=== PATIENT | male | born 1960 | race Caucasian/White ===

== ENCOUNTER 2019-09-05 20:56 | Inpatient (IN) ==
--- NOTE | 2019-09-05 22:19 | PROVIDER DOCUMENTATION ---
This chart was entered by Racheal Telles Scribe, acting as scribe for Caroline Ornelas MD. HPI-Abdominal Pain/GI Problem - General Chief Complaint: Edema Stated Complaint: SWELLING IN ABDOMEN Time Seen by Provider: 09/05/19 20:59 Source: patient Allergies/Adverse Reactions: Patient Allergies Allergy/AdvReac Type Severity Reaction Status Date / Time Penicillins Allergy SWELLING Verified 09/05/19 22:00 Sulfa (Sulfonamide Allergy mouth Verified 09/05/19 22:00 Antibiotics) breaks out Home Medications: Home Medication List Medication Instructions Recorded Confirmed Last Taken Type Omeprazole [Prilosec] 20 mg PO DAILY 12/31/17 09/05/19 Unknown History - History of Present Illness-ABD Nature of Presenting Problems: pt is a 59 yr old male presenting with 6 month complaint of inability to eat, nausea, abdominal pain, incontinence of bowel and bladder. pt reports he has urge to urine but urine is coming from his abdominal wal not his urethra. pt reports all began shortly after having his gall bladder removed. pt reports 2 swollen areas to mid abdomen that became smaller today after passing blood with his urine. pt denies fever, admits fatigue Abdominal Pain Onset Location: reports: generalized abdomen Quality of Pain: reports: aching, cramping Onset/Duration: reports: gradual (6+months) Timing: reports: changing over time, getting worse Activities at Onset: reports: light activity Exposure to sick contacts?: No Modifying Factors: improves with: nothing Associated Symptoms: reports: diarrhea, fatigue, genitourinary problems, nausea. denies: back/neck pain, chest pain, constipation, EENT symptoms, fever/chills, loss of appetite, vomiting Last BM: this evening Dark Stools Present?: reports: none noticed Rectal Pain: reports: none Emesis Description: reports: none Bruising or Bleeding Gums?: No Similar Symptoms Previously?: Yes Recently seen or treated by another doctor?: No Review of Systems - Adult - REVIEW OF SYSTEMS - ADULT Constitutional: reports: vinod. denies: chills, fever Eyes: reports: no symptoms reported Ears, Nose, Mouth & Throat: reports: no symptoms reported Cardiovascular: denies: chest pain, palpitations, syncope Respiratory: reports: dyspnea on exertion, shortness of breath. denies: cough Gastrointestinal: reports: abdominal pain, diarrhea, nausea, poor appetite. denies: vomiting Genitourinary: reports: hematuria, incontinence Musculoskeletal: reports: no symptoms reported Integumentary: reports: no symptoms reported Neurological: denies: dizziness/vertigo, headache/migraines Psychiatric: reports: no symptoms reported Endocrine: reports: no symptoms reported Hematologic/Lymphatic: reports: no symptoms reported Allergic/Immunologic: reports: no symptoms reported All Other Systems: Reviewed and Negative Past History - Adult - PAST MEDICAL HISTORY-ADULT Review of Records: reports: Old Records Reviewed, Nursing Assessment Review, Medications Reviewed, Social history reviewed & non-contributory. Major Childhood Illnesses: reports: denies history Cardiovascular: reports: denies history Respiratory: reports: denies history Gastrointestinal: reports: GERD Obstetrical/Gynecological: reports: denies history Genitourinary: reports: denies history Musculoskeletal: reports: denies history Neurological: reports: denies history Endocrine/Immune: reports: other (Hemochromatosis) Other Conditions: reports: denies history - PRIOR SURGERIES/PROCEDURES Surgical/Procedure History: reports: cholecystectomy - IMMUNIZATION STATUS Childhood Immunizations: See Nurse Assessment Flu Vaccine: See Nurse Assessment - FAMILY HISTORY Family History: reviewed, not pertinent - SOCIAL HISTORY Smoking: cigarettes Provider spent 3-5 mins advising pt. on dangers of tobacco.: Discussed manners to quit use, and f/u contacts for add'l counseling. Substance Use: denies Living Situation: family Physical Exam-General - PHYSICAL EXAM-ADULT Initial Vital Signs Reviewed: Yes - CONSTITUTIONAL General Appearance: alert, moderate distress, thin, other (chronically ill appearing, disheveled) - EYES Eyes: PERRL/EOMI, scleral icterus (mild) - HEAD, EARS, NOSE, MOUTH & THROAT HENMT: normocephalic/atraumatic, normal ENT inspection - NECK Neck: non-tender, full range of motion, supple, normal inspection - RESPIRATORY Respiratory: chest non-tender, lungs clear, normal breath sounds, no respiratory distress, no accessory muscle use - CARDIOVASCULAR Cardiovascular: normal peripheral pulses, regular rate, rhythm, no edema - GASTROINTESTINAL (ABDOMEN) Abdominal Exam: normal bowel sounds, distended, tenderness (diffuse tenderness), other (possible umbilical hernia with irritation to base of skin of flap) - LYMPHATIC Lymphatic: no adenopathy - MUSCULOSKELETAL Back Exam: normal inspection Extremity: normal range of motion, non-tender, normal inspection - SKIN Integumentary: normal turgor, warm/dry, jaundice (mild) - NEUROLOGIC Neurologic: grossly normal, no motor/sensory deficits - PSYCHIATRIC Psych/Mental Status: normal mood/affect, anxious, disheveled, other (odd affect) Progress - PLAN OF CARE/RESULTS Result Diagrams: 09/05/19 23:34 09/05/19 23:34 - CT/MRI 1 CT Study: Abdomen (cirrhosis, moderate ascites, mild wall thicening involvin small and large bowel. Could be due to liver disase and third spacing vs enterocolitis, infectious of inflammatory) - CONSULTS/PCP/HOSPITALIST Notification #1 *Consult/PCP/Hospitalist*: Dr Taylor Consult Disposition: Admit (accepted for admission) Departure - Departure Date of Disposition Decision: 09/06/19 Time of Disposition Decision: 04:57 DIAGNOSIS: Ascites, Abdominal pain, Cirrhosis Disposition: ADMITTED INPATIENT 09 Certified Medical Emergency: Emergent Condition: Stable - Critical Care Note This patient required my direct & personal management of CC.: No Attestation - Physician/ JAMMIE Attestation Patient care was provided by Advanced Practice Provider:: No The physician spent face to face time with patient:: Yes Advanced Practice Provider documentation review:: Supervising physician onsite and consulted in the evaluation and care of this patient. The physician did have a face to face encounter with the patient. This chart was documented by the indicated scribe, (Racheal Telles Scribe) and accurately reflects the services I performed and decisions made by me, Caroline Ornelas MD, as attested by the provider's signature.
[2019-09-05 23:44] LABS: BASO# 0.04 X1000 (0.0-0.2); BASO% 0.5 % (0.0-0.8); EOS# 0.02 X1000 (0.0-0.7); EOS% 0.3 % (0.0-10.0); HEMATOCRIT 34.2 % (42.0-52.0); HEMOGLOBIN 11.7 g/dL (14.0-18.0); LYMPH# 1.57 X1000 (1.2-3.4); LYMPH% 21.5 % (20.5-51.1); MCH 33.6 PG (27-31); MCHC 34.2 g/dL (33-37); MCV 98.3 FL (81-99); MONO# 0.83 X1000 (0.11-0.59); MONO% 11.4 % (1.7-9.3); MPV 10.7 FL (7.4-10.4); NEUT# 4.84 X1000 (1.4-6.5); NEUT% 66.3 % (42.2-75.2); PLT 132 X1000 (130-400); RBC 3.48 XMIL (4.7-6.1); RDW 12.8 % (11.5-14.5)
[2019-09-06 00:12] LABS: AGAP 9; ALB/GLOB RATIO 0.6; ALBUMIN 2.2 g/dL (3.5-5.0); ALKALINE PHOSPHATASE 86 U/L (32-122); BUN 10 mg/dL (8-22); CALCIUM 8.6 mg/dL (8.8-10.2); CHLORIDE 93 mmol/L (98-107); COSMO 250; CREATININE 0.8 mg/dL (0.7-1.2); ESTIMATED GFR > 60; GLUCOSE 121 mg/dL (70-104); GOT 39 U/L (10-34); GPT 12 U/L (10-44); LIPASE 36 U/L (13-60); POTASSIUM 4.4 mmol/L (3.5-5.1); SODIUM 124 mmol/L (136-145); TCO2 22 mmol/L (25-35); TOTAL BILIRUBIN 2.62 mg/dL (0.20-1.00); TOTAL PROTEIN 5.9 g/dL (6.3-8.3)
[2019-09-06 00:13] LABS: URINE SOURCE CATH
[2019-09-06 00:25] LABS: BILIRUBIN URINE SMALL (NEGATIVE); BLOOD URINE NEGATIVE (NEGATIVE); COLOR ORANGE; GLUCOSE URINE NEGATIVE (NEGATIVE); KETONE URINE NEGATIVE (NEGATIVE); LEUKOCYTES URINE SMALL (NEGATIVE); NITRITE URINE NEGATIVE (NEGATIVE); PROTEIN URINE TRACE mg/dL (NEGATIVE); SP GRAVITY URINE 1.023; TURBIDITY URINE HAZY (CLEAR); UR EPITHELIAL CELLS <10 /HPF (<10); URINE BACTERIA NEGATIVE /HPF; URINE RBC <10 /HPF (<10); URINE WBC <10 /HPF (<10); UROBILINOGEN URINE 4 mg/dL (NORMAL)
[2019-09-06] MEDS ORDERED: NS 1,000 ML IV ONE (00:26)
[2019-09-06 00:34] LABS: UR AMPHETAMINES QUAL NONE DETECTED (NONE DETECT); UR BARBITUATES QUAL NONE DETECTED (NONE DETECT); UR BENZODIAZEPIN QUAL NONE DETECTED (NONE DETECT); UR CANNABINOIDS QUAL NONE DETECTED (NONE DETECT); UR COCAINE QUAL NONE DETECTED (NONE DETECT); UR METHADONE QUAL NONE DETECTED (NONE DETECT); UR OPIATES QUAL NONE DETECTED (NONE DETECT); UR OXYCODONE QUAL NONE DETECTED (NONE DETECT); UR PCP QUAL NONE DETECTED (NONE DETECT)
[2019-09-06] MEDS ORDERED: LEVAQUIN 750 MG/D5W 750 MG/150 ML IVPB IV ONE (02:35)
[2019-09-06] MEDS ORDERED: THIAMINE 100 MG in NS 50 ML IV ONE (02:48)
[2019-09-06 03:12] LABS: INR 1.4; PROTIME 17.4 Seconds (11.0-16.0)
[2019-09-06 03:18] LABS: PHOSPHORUS 2.1 mg/dL (2.7-4.5)
[2019-09-06] MEDS ORDERED: ZOFRAN IV PRN (03:38)
[2019-09-06] MEDS: PROTONIX IV SCH ×2 (04:03→16:00)
--- NOTE | 2019-09-06 04:49 | HISTORY AND PHYSICAL ---
PRIMARY CARE PROVIDER: Unknown, he states he has a PA but would not give me the name. CHIEF COMPLAINT: Abdominal pain, leaking from the belly button. HISTORY OF PRESENT ILLNESS: Mr. Hooper is a 59-year-old gentleman who is a very poor historian with an inconsistent story, who comes to the ED complaining about abdominal tenderness that has been ongoing from a few weeks to 1 month. He states he has not been able to get out of the bed since . He stays awake maybe 2 to 3 hours per day. He takes in maybe 500 calories a day. He has dysphagia with solids and liquids. He also reports leaking out of his old abdominal incision that he reports is from a cholecystectomy he reports was done here. However, I do not have any information that he had a cholecystectomy performed here. He also reports that he came to the ED here on , I do not have an ER report on that either. He does state that he drinks about six 6-packs of beers per week. However, he has had about a beer and a half in the last 3 days, unknown amount of time of his bilateral lower extremity pitting edema. Only other history, he states he takes Prilosec for his GERD every day. Sister called and stated that he had a leakage around his navel area that smelled like urine as well as some abdominal swelling. The abdominal swelling began back in April and the umbilicus herniated back in May. The patient does know his name, his date of , he does know that we are in the year 1999. however, he was confused on which year it was, or what is really going on. He does not know what day or time of day it is, as he feels he just sleeps his day away because he is not able to eat or drink. PAST MEDICAL HISTORY: GERD, alcohol abuse, cirrhosis, which the patient denies any history of. PAST SURGICAL HISTORY: States cholecystectomy, bilateral hand surgery, left foot surgery with metals. FAMILY HISTORY: Unknown. ALLERGIES: Penicillin and sulfa. REVIEW OF SYSTEMS: Really hard to obtain secondary to the patient's inconsistencies and really just not answering the questions appropriately. PHYSICAL EXAMINATION: VITAL SIGNS: Temperature is 98.3 degrees, heart rate 94, respirations 22, blood pressure 125/83, O2 is 99% on room air. GENERAL: Mr. Hooper is a 59-year-old gentleman who is lying on the stretcher, in no acute distress. HEENT: Atraumatic, normocephalic. PERRL. NECK: Supple. Trachea midline. CARDIOVASCULAR: S1, S2 appreciated. No murmurs, gallops, rubs noted. RESPIRATORY: Lung sounds clear bilaterally. GASTROINTESTINAL: Somewhat distended, tender. Positive bowel sounds. LOWER EXTREMITIES: 2 to 3+ pitting edema. NEUROLOGIC: Patient is awake, alert. Did not appreciate any focal deficits. DIAGNOSTIC DATA: A CT of the abdomen and pelvis shows cirrhosis, moderate ascites, mild wall thickening involving segments of the small and large bowel. Considerations include 3rd spacing of fluid related to chronic liver disease, a small fat containing periumbilical hernia, small bilateral pleural effusions, anasarca. LABORATORY DATA: White count 7, hemoglobin and hematocrit 11 and 34, platelet count is 132,000. Chemistry: Sodium 124, potassium 4.4, BUN 10, creatinine 0.8. Blood glucose is 121, calcium was 8.6, total bilirubin is 2.62, AST 39, ALT 12, alkaline phosphatase is 86. Ammonia level 14. Total protein is 59, albumin is 2.2, lipase 36. ASSESSMENT AND PLAN: 1. Cirrhosis of the liver, probably alcoholic with moderate ascites and anasarca. I put in for an ultrasound, abdominal paracentesis. I do not know if that can be done today, possibly on Sunday. Consult gastroenterology. Check a PT, INR, PTT. Start him on Aldactone. 2. Alcohol abuse. Patient does six 6-packs of beers per week, per his report. He has had a beer and a half over the last 3 days. We will watch him closely for alcohol withdrawal and delirium tremens, put in for some p.r.n. Ativan for alcohol withdrawal, give him a dose of thiamine. 3. Dysphagia. We will set him up for a GI series. Check a B12, folate. 4. Periumbilical hernia that is small. The patient feels like it is oozing a foul smelling odor that smells like urine to him. We will do some cultures. He has been started on Flagyl and Levaquin. 5. Gastroesophageal reflux disease. We will continue with Protonix b.i.d. given his lower platelet count. 6. Hemochromatosis. Check iron studies. 7. Hyponatremia. The patient was given 1 L fluid bolus. We will recheck in the a.m. 8. Encephalopathy. We will continue with neuro checks. Ammonia level was normal. 9. Further recommendation to follow physician evaluation, laboratory and diagnostic data. Dictated by ZHANG Garcia for Rodrick Jeffers MD cc: Rodrick Jeffers MD Independent exam and assessment done by me at bedside with RN SHIFT MGR; started on abx to cover on broad coverage for SBP and possible secondary peritonitis. Will also need diagnostic paracentesis to determine culture reports. MTDD
--- NOTE | 2019-09-06 05:50 | Diag Imaging Result Doc PS360 ---
EXAM: CT ABD/PELVIS W/IV CONT ONLY HISTORY: possible bladder urinary fistula TECHNIQUE: CT abdomen and pelvis with intravenous contrast, but without oral contrast. COMPARISON: 12/31/2017 FINDINGS: There are tiny pleural effusions measuring less than 1.5 cm. The spleen measures 13.7 cm in AP diameter. The gallbladder has been removed. There is fatty infiltration of the liver. A small amount of fluid is about the liver and spleen. Minimal abdominal ascites. Normal pancreas, adrenal glands, and kidneys. No hydronephrosis. No aortic aneurysm. Prominent atherosclerosis. No bowel obstruction. Mild pleural thickening to several small bowel loops in proximal colon. No abscess. Small fat filled umbilical hernia. The urinary bladder is only mildly distended. The prostate is not enlarged. Tiny scattered mesenteric nodes. IMPRESSION: 1.Cirrhosis with minimal ascites 2.Cholecystectomy 3.Tiny pleural effusions 4.Prominent atherosclerosis 5.Possible enteritis 6.A preliminary report was given at 1:22 AM This exam was performed using automated exposure control, adjustment of mA or kV according to patient size, and/or use of iterative reconstruction technique. Electronically signed by Ilya Quarles 09/06/2019 5:48 AM
[2019-09-06 07:50] LABS: INR 1.66; PROTIME 19.9 Seconds (11.0-16.0)
[2019-09-06 07:51] LABS: PTT 40.8 Seconds (22.3-41.8)
[2019-09-06] MEDS: FLAGYL 500 MG/NS 500 MG/100 ML IVPB IV SCH ×3 (08:13→19:44)
[2019-09-06] MEDS: ALDACTONE PO SCH ×3 (08:13→21:58)
[2019-09-06] MEDS: THIAMINE 500 MG in NS 50 ML IV SCH ×2 (10:50→19:43)
--- NOTE | 2019-09-06 11:39 | PROGRESS NOTE ---
DATE: 09/06/2019 INTERVAL HISTORY: No acute events overnight. His vitals were unremarkable. He had profound metabolic derangement and confusion when he presented. He is currently sleepy and he states he has not had any breakfast this morning. SUBJECTIVE: He denies any chest pain, shortness of breath, or cough. He denies any vomiting since he has been in the hospital, though he is feeling nauseous. He states he did have leaking through his umbilicus when he was at home. REVIEW OF SYSTEMS: Negative for abdominal pain. Negative for fever. Negative for chills. Positive for difficulty swallowing. However, I canceled upper GI barium swallow since only urgent upper GI or small bowel series have been done over the weekends. VITALS: Temperature 98 degrees, pulse 85, respiratory 18, blood pressure 115/72. He is saturating 100% on room air. PHYSICAL EXAMINATION: Not in acute distress. He has severe protein energy malnutrition with temporal wasting. He has spider angiomata affecting anterior chest wall. No pallor, cyanosis, clubbing, or icterus.Lungs: Air entry bilaterally equal. No wheeze, rhonchi, crackles. Cardiovascular: S1, S2 normal. No murmur or gallop. Abdomen: Soft, distended. Mild generalized tenderness without any focality. He has hepatomegaly with lower edge of liver palpable 2 cm below midclavicular line. I could not appreciate splenomegaly. Is tympanic to percussion. However, in right lateral position I could appreciate dull note on the right lower quadrant. Active bowel sounds. Extremities: He has bilateral lower extremity edema with erythematous patches extending up to thigh level. He is alert. He is oriented to himself. He is also oriented to time though he initially thought this was [facility]. He is a poor historian. LABS: No CBC today. INR shows 1.6. No new BMP. Microbiology known positive data so far. Abdomen pelvis CT on presentation had cirrhosis with minimal ascites, cholecystectomy, pleural effusions, possible enteritis. ASSESSMENT AND PLAN: 1. New diagnosis of cirrhosis, likely because of chronic ongoing alcohol abuse with ascites, bilateral pleural effusion and lower extremity edema. The patient was strongly counseled about stopping alcohol use. He also mentions that he had a liver biopsy in the past and medical records from [facility] have been requested. 2. Hypoalbuminemia, anasarca with bilateral pleural effusions and lower extremity edema because of liver cirrhosis. Start patient on furosemide and spironolactone with a goal of reaching furosemide 40 mg and spironolactone 100 mg daily. I will closely monitor his electrolytes and blood pressure. 3. Possible enteritis and mild inflammation around the umbilical hernia. There isn't any rebound or rigidity. There is cellulitis, oozing over umbilical hernia and Cultures have been taken. I advised the nursing team to apply colostomy bag. Continue IV antibiotics for a short course and follow up final culture results. He may need surgery evaluation if he has a large amount of ascitic fluid draining. 4. Alcohol abuse and alcohol use disorder. I will start him on high-dose intravenous thiamine. Currently on neurological examination, he is able to raise both upper and lower extremities above ground level. He does not have any ophthalmoplegia with pupils equal reacting to light and extraocular movements intact both sides of midline. I will start him on high-dose intravenous thiamine and multivitamin. 5. Hyponatremia, hypochloremia, hypocalcemia, hypophosphatemia because of poor oral intake as well as hypotonic hyponatremia in the setting of anasarca. I will follow up with urine electrolytes and start him on diuretics. I will also follow up with stat cortisol and TSH level. DISPOSITION: Continue to monitor patient inside the hospital. Plan of care discussed with him. His questions have been answered. Appreciate GI recommendations. cc: Basim Norwood MD [facility] SYSTEMLorne
[2019-09-06] MEDS: LASIX PO SCH (13:55)
[2019-09-06 22:43] LABS: PROTEIN CREAT RATIO 0.1; UR CREAT RANDOM 192.3 mg/dL (14-26); UR PROT RANDOM 23.8 mg/dL
[2019-09-06 22:46] LABS: UR CREAT RANDOM 181.6 mg/dL (14-26); UR SODIUM < 10 mmoll
[2019-09-07] MEDS ORDERED: VITAMIN K 10 MG in NS 50 ML IV ONE (00:04)
[2019-09-07] MEDS ORDERED: NS 500 ML ONE (00:36)
[2019-09-07] MEDS: FLAGYL 500 MG/NS 500 MG/100 ML IVPB IV SCH ×4 (02:17→21:12)
[2019-09-07] MEDS: LEVAQUIN 750 MG/D5W 750 MG/150 ML IVPB IV SCH (02:17)
[2019-09-07] MEDS: THIAMINE 500 MG in NS 50 ML IV SCH ×3 (03:24→20:14)
[2019-09-07] MEDS: PROTONIX IV SCH ×2 (03:24→14:43)
[2019-09-07 07:37] LABS: BASO# 0.02 X1000 (0.0-0.2); BASO% 0.4 % (0.0-0.8); EOS# 0.06 X1000 (0.0-0.7); EOS% 1.2 % (0.0-10.0); HEMATOCRIT 28.8 % (42.0-52.0); HEMOGLOBIN 9.9 g/dL (14.0-18.0); LYMPH# 1.13 X1000 (1.2-3.4); LYMPH% 23.2 % (20.5-51.1); MCHC 34.4 g/dL (33-37); MONO# 0.58 X1000 (0.11-0.59); MONO% 11.9 % (1.7-9.3); MPV 10.5 FL (7.4-10.4); NEUT# 3.08 X1000 (1.4-6.5); NEUT% 63.3 % (42.2-75.2); PLT 120 X1000 (130-400); RBC 2.91 XMIL (4.7-6.1); RDW 12.7 % (11.5-14.5); WBC 4.87 X1000 (4.8-10.8)
[2019-09-07 07:51] LABS: AGAP 11; ALB/GLOB RATIO 0.7; ALBUMIN 1.9 g/dL (3.5-5.0); ALKALINE PHOSPHATASE 68 U/L (32-122); BUN 11 mg/dL (8-22); CALCIUM 7.7 mg/dL (8.8-10.2); CHLORIDE 97 mmol/L (98-107); COSMO 256; ESTIMATED GFR > 60; GLUCOSE 97 mg/dL (70-104); GOT 39 U/L (10-34); GPT 11 U/L (10-44); MAGNESIUM 1.6 mg/dL (1.5-2.7); SODIUM 128 mmol/L (136-145); TCO2 20 mmol/L (25-35); TOTAL BILIRUBIN 1.85 mg/dL (0.20-1.00); TOTAL PROTEIN 4.8 g/dL (6.3-8.3)
[2019-09-07] MEDS: ALDACTONE PO SCH ×2 (09:29→20:14)
[2019-09-07] MEDS: LASIX PO SCH (09:29)
[2019-09-07] MEDS: THERA M PLUS PO SCH (09:29)
--- NOTE | 2019-09-07 10:03 | GASTROENTEROLOGY CONSULTATION ---
DATE: 09/06/2019 REASON FOR CONSULTATION: Cirrhosis with ascites. HISTORY OF PRESENT ILLNESS: Mr. Akin Hooper is a 59-year-old gentleman with history of acid reflux, alcohol abuse, who presented with 1 month of progressive abdominal tenderness. The patient reports that he underwent a cholecystectomy in the past and since then, he says that he has been having some abdominal swelling and lower extremity edema. He drinks about six 6-packs of beer per week, which he says he likes it. He takes a Prilosec for GERD every day. The patient notes that he has noticed some new umbilical hernia with some leaking from that site. Apparently, he has not been able to get out of bed since . He reports being recently hospitalized at [facility], where he, apparently, had a liver biopsy and a paracentesis. However, he was never started on any diuretic, per his report. REVIEW OF SYSTEMS: The patient is not very cooperative and unable to give a consistent history. PAST MEDICAL HISTORY: As per HPI. PAST SURGICAL HISTORY: Cholecystectomy, bilateral hand surgery, left foot surgery. FAMILY HISTORY: Unknown. SOCIAL HISTORY: He drinks beer regularly, as mentioned. He was not able to provide any other history. ALLERGIES: Penicillin, sulfa. MEDICATIONS: Omeprazole. PHYSICAL EXAMINATION: Vital signs: Temperature is 98.1 degrees, heart rate 96, respiratory rate of 17, blood pressure of 118/57, O2 saturation 91% on room air. General: Patient is awake, alert, oriented x3. HEENT: Sclerae anicteric. Moist mucous membranes. Extraocular movements intact. Neck: Supple. No JVD or lymphadenopathy. Cardiac: Regular rate and rhythm. No murmurs, rubs or gallops. Lungs: Clear to auscultation bilaterally. Abdomen: Protrudent, distended. Notable umbilical hernia, not incarcerated. Some mild ascites, nontender. Extremities: With 2+ pitting edema with some erythema in the left lower extremity at his foot, nontender. Neurologic: Nonfocal. No asterixis. LABORATORY DATA: White count is 7.3. Yesterday, hemoglobin 11.7, platelets of 132,000. INR of 1.66. Sodium 124, potassium 4.4, chloride 93, bicarb 23, BUN of 10, creatinine 0.8. Glucose of 121. LFTs: Total bilirubin 2.26, AST 38.9, ALT 12, alkaline phosphatase 86. INR of 2.1, calcium 8.6, iron 33, ammonia 14, total protein 5.9, albumin 2.2, lipase 36. Vitamin B12 of 718, folate is 4.2. AM cortisol 14.7. UA shows trace protein, bilirubin, leukocytes, ketones. Negative alcohol. IMAGING: CT of the abdomen and pelvis shows cirrhosis with minimal ascites, cholecystectomy in the past, tiny pleural effusion. ASSESSMENT AND PLAN: Mr. Akin Hooper is a 59-year-old gentleman with past medical history of alcoholic cirrhosis with ascites who presents with worsening lower extremity edema, abdominal distention, found to have significant hyponatremia, folate deficiency, iron deficiency, protein calorie malnutrition, and coagulopathy thought to be nutritional. CT scan of the abdomen and pelvis does show some minimal ascites. He is currently on Lasix 20 mg daily, Flagyl, nafcillin, multivitamin, plus a PPI IV b.i.d., spironolactone 25 mg daily, and Diovan. His urine sodium was less than 10. Recommend fluid restriction, checking labs daily, BNP, INR, IV vitamin K. Patient does not appear to have enough fluid on his abdominal exam to tap. Ultrasound- guided paracentesis. Please get records from [facility]. Monitor for signs of alcohol withdrawal. - Decompensated ETOH cirrhosis with ascites - Altered mental status - Hyponatremia - Folate deficiency anemia - Iron deficiency anemia - Thrombocytopenia - Severe protein calorie malnutrition - Coagulopathy - Alcoholism Thank you for this consult. We will follow with you. Please call with any questions or concerns. [facility]
[2019-09-07] MEDS ORDERED: ALBUMIN 25% IV ONE (12:28)
--- NOTE | 2019-09-07 15:06 | PROGRESS NOTE ---
DATE: 09/07/2019 INTERVAL HISTORY: A colostomy bag was applied over his umbilicus since the umbilicus kept on oozing a large amount of ascitic fluid. No other acute overnight events. Mr. Hooper's vitals were largely unremarkable. His hemoglobin is 9.9. His sodium and chloride have been improving. He is getting intravenous albumin as he lost more than 1 L of ascitic fluid through colostomy bags. SUBJECTIVE: He denies chest pain, shortness of breath, cough. He denies nausea, vomiting. REVIEW OF SYSTEMS: Negative for burning in the micturition. Positive for decreased appetite. Positive for persistent distention of the abdomen. VITAL SIGNS: Temperature 97.9 degrees, pulse 80, respiratory rate 18, blood pressure 108/61. He is saturating 100% on room air. PHYSICAL EXAMINATION: General: Mr. Hooper is not in any acute distress. HEENT: Oral cavity is moist. He does have severe protein energy malnutrition with temporal wasting, spider angiomata affecting anterior chest wall. No pallor, cyanosis, clubbing, or icterus. Lungs: Air entry bilaterally equal. No wheeze, rhonchi, or crackles. Cardiovascular: S1, S2 normal. No murmur or gallop. Abdomen: Soft, distended. Mild generalized tenderness. He has a colostomy bag over his umbilicus. He has hepatomegaly with lower edge of the liver palpable 2 cm below midclavicular line. I could not appreciate any splenomegaly. Tympanic to percussion most abdomen except flanks where he has mild dullness, which is shifting dullness. Extremities: He has a bilateral lower extremity edema with erythematous macules extending up to thigh level. Input and output: Suggest -200 mL yesterday. LABS: Suggestive of hemoglobin of 9.9, WBC 4.8, platelet 120,000. His sodium has improved to 128, chloride 97. His kidney function is normal. His glucose is 97, total bilirubin of 1.8. His TSH was 2.4. Cortisol was 14.7. His urine sodium was less than 10. MICROBIOLOGY: Urine culture was growing gram-positive cocci. However, urinalysis on presentation had less than 10 WBCs and he did not have any symptoms. ASSESSMENT AND PLAN: 1. Cirrhosis, likely alcoholic with ascites, bilateral pleural effusion, and lower extremity edema. The patient was counseled about stopping alcohol use. Previous records from [facility] are pending, where he claims to have undergone liver biopsy, endoscopy, and paracentesis. GI team on board. Ultrasound-guided paracentesis has been requested to be done on September 07. 2. Hypoalbuminemia, anasarca with bilateral pleural effusions and lower extremity edema because of liver cirrhosis. Continue furosemide, spironolactone with a goal of furosemide of 40 and spironolactone 100 a day. I will give him intravenous albumin considering he lost more than 1 L of ascitic fluid through the umbilicus. 3. Possible enteritis and mild inflammation around the umbilical hernia. There is no rebound or rigidity. He only has mild generalized tenderness. There is possibly mild cellulitis around the umbilicus, around the hernia, though it is reducible. I will consult General Surgical team, as per my discussion with GI team, considering he continues to have a significant amount of oozing of ascitic fluid from his umbilical hernia. I will continue intravenous antibiotics. 4. Alcohol abuse and alcohol use disorder. The patient was counseled about cessation. He is not demonstrating any signs of alcohol withdrawal. Continue high-dose intravenous thiamine and multivitamin. He is more alert today then yesterday. 5. Hyponatremia, hypochloremia, hypocalcemia, and hypophosphatemia because of poor oral intake, as well as hypotonic hyponatremia in the setting of hypervolemia related to cirrhosis. Continue diuretic and follow up sodium and chloride levels. 6. Disposition. Continue to monitor patient inside the hospital as we await paracentesis tomorrow. I will also follow up with sodium and chloride level tomorrow. Plan of care discussed with him. If no further GI interventions planned after paracentesis, I would anticipate discharge in the next 48 hours based on his clinical course. The patient is in agreement with that plan. cc: MD PEGGY Cortez
--- NOTE | 2019-09-07 17:16 | GENERAL SURGERY CONSULTATION ---
DATE: 09/07/2019 REQUESTING PHYSICIAN: Dr. Norwood. REASON FOR CONSULTATION: Umbilical hernia with leaking ascites. HISTORY OF PRESENT ILLNESS: This is a 59-year-old male who has had abdominal distention and discomfort for what sounds like several months. He is a poor historian but his sister stated that he began swelling last April. They noticed an umbilical hernia back in May. He has been confused for some time and has been mostly in the bed for the last few months. Over the last few weeks, there have been several episodes of leaking fluid from his umbilical area in the hernia and then recently, over the last few days, a large amount of fluid has been leaking. He does report to drink beer regularly, he says a 6 pack per week. He has previously been evaluated in [facility] in what I think is 2018 when he had a cholecystectomy and what sounds like a liver biopsy and a paracentesis. He apparently was lost to followup and now was presenting with these new findings of a ruptured umbilical hernia and increased abdominal swelling and confusion. PAST MEDICAL HISTORY: Gastroesophageal reflux disease, alcohol abuse, he mentions hemochromatosis. PAST SURGICAL HISTORY: Laparoscopic cholecystectomy, hand surgery, left foot surgery. FAMILY HISTORY: Unknown. ALLERGIES: Penicillin and sulfa. HOME MEDICATIONS: Omeprazole. SOCIAL HISTORY: He does drink alcohol regularly. REVIEW OF SYSTEMS: Really difficult to obtain secondary to his poor history, inconsistency, and poor memory. PHYSICAL EXAMINATION: Temperature 97.9 degrees, pulse 80, respirations 18, blood pressure 108/61, O2 saturation 100%. General: Elderly, disheveled appearing, chronically malnourished male who looks older than stated age, in no acute distress. HEENT: Normocephalic, atraumatic. Extraocular muscles intact. His face does appear to be sunken in some due to chronic muscle wasting. Neck: Supple. No thyromegaly. Lymphatics: No cervical, supraclavicular, or periumbilical lymph nodes appreciated. CV: Regular rate and rhythm. Respiratory: Bilateral breath sounds. No work of breathing. GI: Protuberant, soft. No organomegaly or mass. He has a reducible, 2 cm umbilical hernia which is leaking steadily, clear ascites into an umbilical bag. I do not really note any erythema of the area. Extremities: Bilateral edema is noted. No cyanosis. Musculoskeletal: Moves all extremities equally. He appears to have chronic muscle wasting. LABORATORY DATA: White cell count 4.8, hemoglobin 9.9, hematocrit 28, platelet count 120,000. INR 1.66. Electrolytes reviewed. Notable for a sodium of 128, chloride 97, CO2 of 20, BUN 11, creatinine 1.0. Total bilirubin 2.6 on admission and 1.8 now, AST 39, ALT 11, alkaline phosphatase 68, lipase 36, albumin 2.2 two days ago and 1.9 today. Urinalysis negative. IMAGING: CT of the abdomen and pelvis was reviewed, showing cirrhosis with a small amount of ascites. Normal pancreas, adrenal glands, and kidneys. The gallbladder has been removed. There were tiny pleural effusions. ASSESSMENT AND PLAN: A 59-year-old male with a leaking umbilical hernia secondary to ascites and cirrhosis. We will seek to get the records from [facility]. In the meantime, I think he will require umbilical hernia repair in this setting. Future referral for liver transplantation, diet changes, diuretics per the hospitalist. cc: Pavel Cisneros MD
[2019-09-07] MEDS ORDERED: LOVENOX SUBQ SCH (18:00)
--- NOTE | 2019-09-07 23:06 | PROVIDER PROGRESS NOTE ---
Progress Note S: No acute overnight event. Patient reports improvement in abdominal distension. However, he has had significant drainage of ascites from umbilicus nearly 5L requiring adding ostomy drain. No bleeding or confusion. O: Last Vital Signs Temp 98.7 F 09/07/19 19:50 Pulse 89 09/07/19 19:50 Resp 16 09/07/19 19:50 BP 114/64 09/07/19 19:50 Pulse Ox 100 09/07/19 19:50 Height 6 ft Weight 151 lb 9 oz GEN: awake, alert, NAD, malnourished HEENT: anicteric, MMM NECK: supple, no JVD CV: RRR, no murmurs PULM: CTAB, no wheezing ABD: decreased distension, umbilical hernia with ostomy bag draining clear yellow ascites EXT: mild 1-2+ pedal edema NEURO: nonfocal, no asterixis LABS: 09/07/19 09/07/19 09/07/19 07:10 07:10 07:10 WBC 4.87 Hgb 9.9 L D Plt Count 120 L Sodium 128 L Potassium 4.0 Chloride 97 L Carbon Dioxide 20 L BUN 11 Creatinine 1.0 Total Bilirubin 1.85 H AST 39 H ALT 11 Alkaline Phosphatase 68 Total Protein 4.8 L Albumin 1.9 L TSH 2.46 ASSESSMENT AND PLAN - Decompensated ETOH cirrhosis with ascites - Altered mental status - Ruptured umbilical hernia - Hyponatremia - Folate deficiency anemia - Iron deficency - Thrombocytopenia - Severe protein calorie malnutrition - Coagulopathy - Alcoholism Mr. Akin Hooper is a 59-year-old gentleman with decompensated alcoholic cirrhosis with ascites who presents with worsening lower extremity edema, abdominal distention, found to have confusion, significant hyponatremia, folate deficiency, iron deficiency, protein calorie malnutrition, and coagulopathy thought to be nutritional. He has had significant drainage from ruptured umbilical hernia. He is on empiric antibiotics with flagyl and levaquin. Also, on lasix 20mg and spironolactone. Recommended surgical evaluation for surgical repair of umbilical hernia. Continue CIWA protocol, thiamine, MVI, and vitamin K. Encourage ETOH cessation. He is not a liver transplant candidate given his alcoholism. His confusion has improved with correction of hyponatremia. No asterixis. No signs of bleeding. Stopped lovenox given coagulopathy and thrombocytopenia. He was given albumin 25gm today. Recommend albumin over crystalloid for fluid resuscitation. Apprec surgery recs. Will follow with you. Please call with questions.
[2019-09-08] MEDS: LEVAQUIN 750 MG/D5W 750 MG/150 ML IVPB IV SCH (02:11)
[2019-09-08] MEDS: FLAGYL 500 MG/NS 500 MG/100 ML IVPB IV SCH ×4 (03:53→21:40)
[2019-09-08 07:41] LABS: BASO# 0.02 X1000 (0.0-0.2); BASO% 0.5 % (0.0-0.8); EOS# 0.06 X1000 (0.0-0.7); EOS% 1.4 % (0.0-10.0); HEMATOCRIT 28.8 % (42.0-52.0); HEMOGLOBIN 9.7 g/dL (14.0-18.0); LYMPH# 1.09 X1000 (1.2-3.4); LYMPH% 24.7 % (20.5-51.1); MCH 33.4 PG (27-31); MCHC 33.7 g/dL (33-37); MCV 99.3 FL (81-99); MONO# 0.43 X1000 (0.11-0.59); MONO% 9.7 % (1.7-9.3); MPV 10.4 FL (7.4-10.4); NEUT# 2.82 X1000 (1.4-6.5); NEUT% 63.7 % (42.2-75.2); PLT 118 X1000 (130-400); RDW 12.4 % (11.5-14.5); WBC 4.42 X1000 (4.8-10.8)
[2019-09-08 08:10] LABS: AGAP 9; ALB/GLOB RATIO 0.7; ALBUMIN 2.1 g/dL (3.5-5.0); ALKALINE PHOSPHATASE 62 U/L (32-122); BUN 10 mg/dL (8-22); CALCIUM 7.7 mg/dL (8.8-10.2); CHLORIDE 98 mmol/L (98-107); COSMO 255; ESTIMATED GFR > 60; GLUCOSE 105 mg/dL (70-104); GOT 33 U/L (10-34); GPT 10 U/L (10-44); SODIUM 127 mmol/L (136-145); TCO2 20 mmol/L (25-35); TOTAL BILIRUBIN 1.75 mg/dL (0.20-1.00); TOTAL PROTEIN 5.1 g/dL (6.3-8.3)
[2019-09-08] MEDS: ALDACTONE PO SCH ×2 (09:21→21:40)
[2019-09-08] MEDS: VITAMIN B-1 PO SCH (09:21)
[2019-09-08] MEDS: THERA M PLUS PO SCH (09:21)
[2019-09-08] MEDS: LASIX PO SCH (09:21)
[2019-09-08] MEDS ORDERED: SODIUM CHLORIDE 0.9% INJ SCH (09:45)
[2019-09-08] MEDS ORDERED: FENTANYL ONE (10:16)
[2019-09-08] MEDS ORDERED: DIPRIVAN 1% ONE ×2 (10:16→10:23)
--- NOTE | 2019-09-08 10:20 | Diag Imaging Result Doc PS360 ---
EXAM: US GB < RUQ (LIMITED) 09/08/2019 HISTORY: diagnostic/therapeutic TECHNIQUE: Limited right upper quadrant ultrasound (preliminary scan for paracentesis.) COMMENT: There is a very small amount of fluid in the anterior subhepatic space. The volume of fluid which was demonstrated on the previous CT of 09/06/2019. Have diminished considerably. There is a right pleural effusion. IMPRESSION: No drainable fluid collection. Electronically signed by Earnest Shirley 09/08/2019 10:17 AM
[2019-09-08] MEDS ORDERED: XYLOCAINE-MPF 2% ONE (10:23)
[2019-09-08] MEDS ORDERED: SENSORCAINE 0.25%/EPI 1:200,000 ONE (10:25)
[2019-09-08] MEDS ORDERED: ZOFRAN ONE (11:11)
[2019-09-08] MEDS ORDERED: DECADRON ONE (11:11)
--- NOTE | 2019-09-08 11:54 | OPERATIVE NOTE ---
PROCEDURE DATE: 09/08/2019 PREOPERATIVE DIAGNOSES: 1. Recurrent umbilical hernia. 2. Ruptured umbilical hernia. 3. Cirrhosis. 4. Protein calorie malnutrition. POSTOPERATIVE DIAGNOSES: 1. Recurrent umbilical hernia. 2. Ruptured umbilical hernia. 3. Cirrhosis. 4. Protein calorie malnutrition. PROCEDURE: Open repair of recurrent umbilical hernia. SURGEON: Paevl Cisneros MD. ANESTHESIA: General. ESTIMATED BLOOD LOSS: 50 mL. COMPLICATIONS: None apparent. SPECIMENS: Hernia sac. FINDINGS: Reducible 2 cm hernia sac with two separate areas of skin rupture leaking clear ascites. There is mild surrounding skin irritation. TECHNIQUE: The patient was brought to the operating room and placed supine on the table. General anesthesia was induced. He was prepped and draped in usual sterile fashion after appropriate padding. Quarter percent Marcaine with epinephrine was used to anesthetize the skin and subcutaneous tissue around the umbilicus. An elliptical incision was made with a knife down through the dermis sharply to excise all of the damaged umbilical skin back to healthier edges. I then dissected down to the fascia circumferentially with cautery, and excised the hernia sac and damaged skin in 1 piece with cautery. I then obtained hemostasis along the fascial edges and peritoneal edges, being careful to avoid injuring the underlying bowel. I then reapproximated the defect without significant tension using interrupted mattress sutures in a [id number] technique with a 0 Tycron suture. The defect appeared to be satisfactorily closed. There was no more bleeding. The subcutaneous tissues were reapproximated with interrupted 3-0 Polysorb. The skin was closed with a running 4-0 subcuticular Biosyn, and then skin glue was placed. He tolerated this well. There were no apparent complications. cc: Pavel Cisneros MD
--- NOTE | 2019-09-08 11:57 | GASTROENTEROLOGY PROGRESS NOTE ---
DATE: 09/08/2019 SUBJECTIVE: Mr. Hooper is a 59-year-old, male who is resting in bed. The patient complains of abdominal discomfort. He has a ruptured umbilical hernia with ostomy bag draining clear yellow fluid. The patient has denied having any bowel movements today. He is currently n.p.o. for the procedure. OBJECTIVE: Vital Signs: Temperature 98.2 degrees, pulse 82, respirations 14, blood pressure 104/61, oxygen saturation 100% on room air, the patient's weight is 151 pounds, BMI is 20.6 kg/m2. General: He is alert, oriented x2, and in no acute distress. HEENT: Pale conjunctivae. No icterus. PERRL. Neck: Supple. Lungs: Clear to auscultation in the anterior maloney. Cardiovascular: Regular rate and rhythm. Abdomen: Mildly distended. Umbilical hernia with ostomy bag draining clear liquid. Extremities: 2+ pitting edema in the lower extremities. Neurologic: Alert and oriented x2. Labs: WBCs are 4.42, RBCs 2.90, hemoglobin is 9.7, hematocrit is 28.8, platelet count is 118,000. Sodium is 127, potassium 4.0, chloride 98, carbon dioxide 20, anion gap 9, BUN 10, creatinine is 1.0, glucose is 105, calcium is 7.7. Total bilirubin 1.75, AST 33, ALT 10, alkaline phosphatase 62, albumin is 2.1. Imaging: Abdominal ultrasound has shown no drainable fluid collection. IMPRESSION AND PLAN: Cirrhosis Ascites Anemia Alcoholism Malnutrition Coagulopathy Thrombocytopenia PLAN: Mr. Hooper is a 59-year-old, male with decompensated alcoholic cirrhosis with ascites. The patient has a hernia that has ruptured and is draining yellow fluid. The patient is having a surgery today to repair the hernia. He is currently on antibiotics, Flagyl and Levaquin. He is also receiving PPIs daily. For his anemia he is on multivitamin. He is on Aldactone and Lasix. We will continue to monitor the patient and follow the plan of care per PCP and the surgeon. This plan was discussed with Dr. Cardona. Please call us for any further questions or concerns. Dictated by ZHANG Chavez for Jose R Cardona MD cc: Jose R Cardona MD [facility]
[2019-09-08] MEDS: PROTONIX IV SCH (15:26)
[2019-09-08] MEDS ORDERED: ALBUMIN 25% IV ONE (16:10)
--- NOTE | 2019-09-08 16:35 | PROGRESS NOTE ---
DATE: 09/08/2019 SUBJECTIVE: He feels better postop. He looks well. No abdominal swelling. OBJECTIVE: Vital signs: Blood pressure 97/61, heart rate 93, respiratory rate 14, temperature 97.1 degrees. Cardiovascular: Regular rate and rhythm. Pulmonary: Bilateral breath sounds clear to auscultation. GI: Soft, nontender, nondistended. Bowel sounds were positive. LABORATORY DATA: White count is 4, hemoglobin and hematocrit 9 and 28, platelets 118,000. Sodium 127. T bilirubin 1.75. His abdominal wound looks good, very clean. No more swelling or anything to that effect. PROBLEM LIST: 1. Decompensated cirrhosis felt to be secondary to alcoholism. He is on diuretic therapy for his ascites. We will continue to monitor. 2. Hernia with rupture because he had a rupture of his hernia sac, umbilical hernia, due to his ascites. That was surgically corrected today and he looks well. Surgical care per Dr. Cisneros. 3. Symptomatic ascites. He had a large volume fluid removal just because it was evacuated through hernia sac. We will continue his diuretics as long as blood pressure stabilizes, which he is on Lasix and Aldactone. Probably cannot push up the dose too much because his blood pressure is already fairly marginal. DISPOSITION: Pending clinical status. I will probably give him 1 dose of albumin today and see how he does. Home hopefully soon. cc: Michael Garcia MD
[2019-09-09] MEDS: LEVAQUIN 750 MG/D5W 750 MG/150 ML IVPB IV SCH (01:19)
[2019-09-09] MEDS: FLAGYL 500 MG/NS 500 MG/100 ML IVPB IV SCH ×4 (03:05→21:38)
[2019-09-09 08:08] LABS: HEMATOCRIT 22.4 % (42.0-52.0); HEMOGLOBIN 7.6 g/dL (14.0-18.0); MCH 33.6 PG (27-31); MCHC 33.9 g/dL (33-37); MCV 99.1 FL (81-99); MPV 10.2 FL (7.4-10.4); RBC 2.26 XMIL (4.7-6.1); RDW 12.1 % (11.5-14.5); WBC 7.41 X1000 (4.8-10.8)
[2019-09-09 08:19] LABS: AGAP 10; ALB/GLOB RATIO 1.1; ALBUMIN 2.6 g/dL (3.5-5.0); ALKALINE PHOSPHATASE 58 U/L (32-122); BUN 13 mg/dL (8-22); CALCIUM 7.9 mg/dL (8.8-10.2); CHLORIDE 93 mmol/L (98-107); COSMO 252; CREATININE 1.1 mg/dL (0.7-1.2); ESTIMATED GFR > 60; GLUCOSE 133 mg/dL (70-104); GOT 25 U/L (10-34); GPT 10 U/L (10-44); POTASSIUM 4.3 mmol/L (3.5-5.1); SODIUM 124 mmol/L (136-145); TCO2 21 mmol/L (25-35); TOTAL BILIRUBIN 1.27 mg/dL (0.20-1.00); TOTAL PROTEIN 4.9 g/dL (6.3-8.3)
[2019-09-09] MEDS: VITAMIN K 10 MG in NS 50 ML IV SCH (09:13)
[2019-09-09] MEDS: VITAMIN B-1 PO SCH (09:18)
[2019-09-09] MEDS: PROTONIX IV SCH (09:18)
[2019-09-09] MEDS: LASIX PO SCH (09:18)
[2019-09-09] MEDS: ALDACTONE PO SCH ×2 (09:18→21:38)
[2019-09-09] MEDS: THERA M PLUS PO SCH (09:18)
[2019-09-09] MEDS: ULTRAM PO PRN (09:21)
[2019-09-09] MEDS: ATIVAN IV PRN (09:21)
--- NOTE | 2019-09-09 13:18 | GASTROENTEROLOGY PROGRESS NOTE ---
DATE: 09/09/2019 SUBJECTIVE: Mr. Hooper is a 59-year-old, male resting in bed. The patient did complain of mild abdominal tenderness. He had a hernia repair done yesterday. The patient is currently on a heart healthy diet and mentioned not able to eat his breakfast well because he did not have an appetite, and when he eats his stomach hurts. The patient has not a bowel movement today. OBJECTIVE: Vital Signs: Temperature 98.8, pulse 77, respirations 15, blood pressure 103/52, oxygen saturation 100% on room air. The patient's weight is 151 pounds. BMI is 20.6 kg/m2. General: He is alert, oriented x3, and in no acute distress. HEENT: Pale conjunctivae. No icterus. PERRL. Neck: Supple. Lungs: Clear to auscultation. Cardiovascular: Regular rate and rhythm. Abdomen: Mildly distended. The patient has a midline incision. The skin has been glued. He had a hernia repair done yesterday. Extremities: No clubbing, no cyanosis. 2+ pitting edema in the lower extremities. Neurologic: Alert and oriented x3. Laboratory Data: WBCs are 7.41, RBCs 2.26, hemoglobin is 7.6, hematocrit is 22.4, platelet count is 112,000. Sodium is 124, potassium is 4.3, chloride 93, carbon dioxide 21, anion gap 10, BUN 13, creatinine is 1.1, glucose 133, calcium 7.9. Total bilirubin 1.27, AST 25, ALT 10, alkaline phosphatase 58, albumin 2.6. IMPRESSION AND PLAN: 1. Decompensated alcoholic cirrhosis with ascites. 2. Ruptured umbilical hernia, s/p repair. 3. Hyponatremia. 4. Hypokalemia. 5. Iron deficiency. 6. Thrombocytopenia. 7. Severe protein calorie malnutrition. 8. History of alcoholism. PLAN: Mr. Hooper is a 59-year-old, male with a decompensated alcoholic cirrhosis with ascites. The patient did have a hernia repair done yesterday. He is currently on a HH diet, we have added ensure with every meals for his nutrition. He is currently on antibiotics, Flagyl and Levaquin. We will continue him on PPIs daily. Patient is on a multivitamin and thiamine. He is also receiving vitamin K 10 mg at 50 mL per hour daily. The patient is on Lasix and Aldactone. We will continue to monitor the patient's hemoglobin and hematocrit, and follow the plan of care per PCP and surgeon. This plan was discussed with Dr. Feldman. Please call us for any further questions or concerns. Dictated by ZHANG Chavez for Akin Feldman MD [facility]
[2019-09-09 14:16] LABS: HEMATOCRIT 21.2 % (42.0-52.0); HEMOGLOBIN 7.3 g/dL (14.0-18.0)
--- NOTE | 2019-09-09 15:03 | GENERAL SURGERY PROGRESS NOTE ---
DATE: 09/09/2019 SUBJECTIVE: The patient complains of some abdominal soreness and he is not eating much, but no vomiting. OBJECTIVE: Vital signs: Afebrile. Vital signs are stable. GI: Soft, nondistended. Appropriately tender. Incision is clean, dry, intact without erythema. LABORATORY: Hemoglobin 7.3, hematocrit 21.2. ASSESSMENT AND PLAN: A 59-year-old male with alcoholic cirrhosis, now status post umbilical hernia repair for a ruptured, leaking umbilical hernia. His wound is stable. We will continue to monitor while he is in the hospital. cc: Pavel Cisneros MD
[2019-09-10] MEDS: LEVAQUIN 750 MG/D5W 750 MG/150 ML IVPB IV SCH (02:38)
[2019-09-10] MEDS: FLAGYL 500 MG/NS 500 MG/100 ML IVPB IV SCH ×4 (04:15→21:27)
[2019-09-10] MEDS: VITAMIN K 10 MG in NS 50 ML IV SCH (09:10)
[2019-09-10] MEDS: LASIX PO SCH (09:11)
[2019-09-10] MEDS: VITAMIN B-1 PO SCH (09:11)
[2019-09-10] MEDS: SODIUM CHLORIDE 0.9% INJ SCH (09:11)
[2019-09-10] MEDS: PROTONIX IV SCH (09:12)
[2019-09-10] MEDS: THERA M PLUS PO SCH (09:12)
[2019-09-10] MEDS: ALDACTONE PO SCH ×2 (09:12→21:27)
[2019-09-10] MEDS: MIRALAX PO SCH (09:21)
[2019-09-10 10:11] LABS: HEMATOCRIT 22.6 % (42.0-52.0); HEMOGLOBIN 7.4 g/dL (14.0-18.0); IMM GRAN# 0.03 X1000 (0.0-0.04); IMM GRAN% 0.4 % (0.0-0.5); LYMPH# 0.87 X1000 (1.2-3.4); MCH 32.6 PG (27-31); MCHC 32.7 g/dL (33-37); MCV 99.6 FL (81-99); MONO% 7.5 % (1.7-9.3); MPV 10.5 FL (7.4-10.4); NEUT# 5.31 X1000 (1.4-6.5); NEUT% 79.1 % (42.2-75.2); PLT 115 X1000 (130-400); RBC 2.27 XMIL (4.7-6.1); RDW 12.7 % (11.5-14.5); WBC 6.71 X1000 (4.8-10.8)
[2019-09-10 10:21] LABS: AGAP 10; ALBUMIN 2.3 g/dL (3.5-5.0); ALKALINE PHOSPHATASE 63 U/L (32-122); BUN 16 mg/dL (8-22); CALCIUM 7.6 mg/dL (8.8-10.2); CHLORIDE 92 mmol/L (98-107); COSMO 250; CREATININE 1.1 mg/dL (0.7-1.2); ESTIMATED GFR > 60; GLUCOSE 148 mg/dL (70-104); GOT 28 U/L (10-34); GPT 11 U/L (10-44); POTASSIUM 3.9 mmol/L (3.5-5.1); SODIUM 122 mmol/L (136-145); TCO2 20 mmol/L (25-35); TOTAL BILIRUBIN 0.92 mg/dL (0.20-1.00); TOTAL PROTEIN 4.7 g/dL (6.3-8.3)
--- NOTE | 2019-09-10 12:35 | GENERAL SURGERY PROGRESS NOTE ---
DATE: 09/10/2019 SUBJECTIVE: The patient feels better. No new complaints. He did eat yesterday and this morning. OBJECTIVE: He is afebrile. Vital signs are stable. General: He appears chronically ill. No acute distress. GI: Soft. There appears to be a moderate amount of abdominal fluid but the umbilical incision is clean, dry, and intact, without erythema. Laboratory: Reviewed. ASSESSMENT AND PLAN: A 59-year-old male with liver failure and a ruptured umbilical hernia, now status post repair of the hernia. It appears to be healing appropriately. We will follow along. cc: Pavel Cisneros MD
--- NOTE | 2019-09-10 13:40 | GASTROENTEROLOGY PROGRESS NOTE ---
DATE: 09/10/2019 SUBJECTIVE: Mr. Hooper is a 59-year-old male. He was resting in bed. The patient mentioned having mild abdominal tenderness. The patient has denied having any bowel movements for the last few days onwards. He also is complaining of having no appetite. Patient mentioned that after eating his stomach feels tender. OBJECTIVE: Vital Signs: Temperature 98.3 degrees, pulse 76, respirations 16, blood pressure 89/47, oxygen saturation 100% on room air. The patient's weight is 151 pounds. BMI is 20.6 kg/m2. General: He is alert, oriented x3, in no acute distress. HEENT: Pale conjunctivae. No icterus. PERRL. Neck: Supple. Lungs: Clear to auscultation. Cardiovascular: Patient regular rate and rhythm. Abdomen: Mildly distended with midline incision. Skin has been glued with mild abdominal tenderness. Extremities: No clubbing, no cyanosis. 1+ pitting edema in the lower extremities. Neurologic: Alert, oriented x3. LABS: WBCs of 6.71, RBCs 2.27, hemoglobin is 7.4, hematocrit is 22.6, platelet count is 115. Sodium 122, potassium 3.9, chloride 92, carbon dioxide 20, anion gap is 10. BUN is 16, creatinine is 1.1, glucose is 148, calcium is 7.6. Total bilirubin 0.92, AST 28, ALT 11, alkaline phosphatase 63, albumin is 2.3. IMPRESSION AND PLAN: Decompensated alcoholic cirrhosis with ascites Rupture umbilical hernia s/p repair Hyponatremia Hypokalemia MADIHA Severe protein calorie malnutrition H/o alcoholism PLAN: Mr. Hooper is a 59-year-old male, status post hernia repair. The patient is on a heart healthy diet, but he has mentioned that he does not have any appetite and does not feel like eating anything. We will continue patient's PPIs daily. The patient is also receiving vitamin K IV at 50 mL/hour. He is on multivitamin, thiamine, Aldactone and Lasix. He is receiving antibiotics, Levaquin and Flagyl. The patient's liver enzymes have trended downwards and they are within normal limits. We will continue to monitor the patient and follow the plan of care. Per PCP, this plan was discussed with Dr. Feldman. Please call us for any further questions or concerns. Dictated by ZHANG Chavez for Akin Feldman MD [facility]
--- NOTE | 2019-09-10 17:40 | PROGRESS NOTE ---
DATE: 09/10/2019 SUBJECTIVE: He is still fairly tired today though he actually awoke and carried on a conversation, but really not any major issues except he has not had a bowel movement in three to four days. He had an open hernia repair, so that may be related to that, just kind of a postop ileus. OBJECTIVE: Vital Signs: Blood pressure 104/56, heart rate 91, respiratory rate 20, temperature reports 91 degrees (I doubt his temperature is 91), temperature was 98.6 degrees an hour before, so I am not entirely sure. He certainly did not feel like he had a temperature of 91 degrees. PROBLEM LIST: 1. Decompensated cirrhosis felt secondary to alcoholism. He is on diuretic therapy. He is stable. 2. Umbilical hernia with rupture and open hernia repair. He has had a little bit of postoperative ileus. I am going to get plain films. I would like to give him lactulose but not if he is obstructed, but in case his ammonia level is elevated. 3. Symptomatic ascites. He may be developing some ascites versus just postoperative gas. I will get some plain films and we will see how we are doing. He was put on MiraLAX today and he is on high-dose diuretics, so we will see how things look. cc: Michael Garcia MD
[2019-09-10] MEDS: LACTULOSE PO SCH (21:27)
[2019-09-11] MEDS: LEVAQUIN 750 MG/D5W 750 MG/150 ML IVPB IV SCH (03:11)
[2019-09-11] MEDS: FLAGYL 500 MG/NS 500 MG/100 ML IVPB IV SCH ×4 (04:45→21:51)
[2019-09-11 07:59] LABS: BASO# 0.01 X1000 (0.0-0.2); BASO% 0.1 % (0.0-0.8); EOS# 0.03 X1000 (0.0-0.7); EOS% 0.4 % (0.0-10.0); HEMOGLOBIN 8.5 g/dL (14.0-18.0); IMM GRAN# 0.04 X1000 (0.0-0.04); IMM GRAN% 0.6 % (0.0-0.5); LYMPH% 17.1 % (20.5-51.1); MCH 33.3 PG (27-31); MONO# 0.97 X1000 (0.11-0.59); MONO% 13.8 % (1.7-9.3); MPV 10.5 FL (7.4-10.4); NEUT# 4.78 X1000 (1.4-6.5); PLT 109 X1000 (130-400); RBC 2.55 XMIL (4.7-6.1); RDW 13.5 % (11.5-14.5); WBC 7.03 X1000 (4.8-10.8)
[2019-09-11 08:14] LABS: AGAP 11; ALB/GLOB RATIO 0.8; ALBUMIN 2.1 g/dL (3.5-5.0); ALKALINE PHOSPHATASE 77 U/L (32-122); BUN 16 mg/dL (8-22); CALCIUM 7.7 mg/dL (8.8-10.2); CHLORIDE 95 mmol/L (98-107); COSMO 252; CREATININE 1.2 mg/dL (0.7-1.2); ESTIMATED GFR > 60; GLUCOSE 112 mg/dL (70-104); GOT 44 U/L (10-34); GPT 14 U/L (10-44); POTASSIUM 4.2 mmol/L (3.5-5.1); SODIUM 124 mmol/L (136-145); TCO2 18 mmol/L (25-35); TOTAL BILIRUBIN 1.59 mg/dL (0.20-1.00); TOTAL PROTEIN 4.7 g/dL (6.3-8.3)
[2019-09-11] MEDS: VITAMIN K 10 MG in NS 50 ML IV SCH (09:21)
--- NOTE | 2019-09-11 09:21 | Diag Imaging Result Doc PS360 ---
EXAM: ABDOMEN FLAT/UPRIGHT 09/11/2019 HISTORY: pain TECHNIQUE: Flat and upright abdomen COMMENT: There are air-fluid levels in the colon. There are surgical clips in the right upper quadrant. There is no evidence of gastric or small bowel dilatation and no evidence organomegaly or mass is present. IMPRESSION: Nonspecific abdomen. The possibility of enterocolitis cannot be excluded. Electronically signed by Earnest Shirley 09/11/2019 9:19 AM
[2019-09-11] MEDS: MIRALAX PO SCH (09:22)
[2019-09-11] MEDS: ALDACTONE PO SCH ×2 (09:25→21:51)
[2019-09-11] MEDS: LASIX PO SCH (09:26)
[2019-09-11] MEDS: LACTULOSE PO SCH (09:26)
[2019-09-11] MEDS: PROTONIX IV SCH (09:26)
[2019-09-11] MEDS: SODIUM CHLORIDE 0.9% INJ SCH (09:26)
[2019-09-11] MEDS: THERA M PLUS PO SCH (09:26)
[2019-09-11] MEDS: VITAMIN B-1 PO SCH (09:26)
--- NOTE | 2019-09-11 11:17 | GENERAL SURGERY PROGRESS NOTE ---
DATE: 09/11/2019 SUBJECTIVE: The patient reports feeling sore and tired. He had several loose stools last night. He did eat some. OBJECTIVE: Vital signs: He is afebrile. Vital signs are stable. General: He is awake and alert. No acute distress. GI: Soft, appropriately tender. Incision is clean, dry, and intact. LABORATORIES: Reviewed and stable. Ammonia level is normal. IMAGING: Abdominal x-ray today shows a few air-fluid levels in the colon, but no small bowel dilation. No gastric dilation. No free air. ASSESSMENT AND PLAN: A 59-year-old male status post umbilical hernia repair for acute rupture and decompensated cirrhosis. From a surgical standpoint, he is healing appropriately and I think he is stable for discharge with appropriate medical management of his cirrhosis. cc: Pavel Cisneros MD
--- NOTE | 2019-09-11 14:53 | GASTROENTEROLOGY PROGRESS NOTE ---
DATE: 09/11/2019 SUBJECTIVE: Mr. Hooper is a 59-year-old, male resting in bed. The patient is still complaining that after he eats he has some abdominal tenderness. He said he did not feel that good today. The patient did have 1 bowel movement today. OBJECTIVE: Vital Signs: Temperature 97.6 degrees, pulse 89, blood pressure 103/54, oxygen saturation 99% on room air. The patient's weight is 151 pounds. BMI is 20.6 kg/m2. General: He is alert, oriented x3, and in no acute distress. HEENT: Pale conjunctivae, no icterus. PERRL. Neck: Supple. Lungs: Clear to auscultation. Cardiovascular: Patient has regular rate and rhythm. Abdomen: Mildly distended, tender, midline incision that has been glued. Extremities: No clubbing, no cyanosis. Generalized edema in the lower extremities. Neurological: Alert, oriented x3. LABS: WBCs are 7.03, RBCs 2.55, hemoglobin is 8.5, hematocrit is 25.0, platelet count is 109. Sodium 124, potassium is 4.2, chloride 95, carbon dioxide 80, anion gap is 11. BUN is 16, creatinine is 1.2, glucose 112, calcium 7.7. Total bilirubin 1.59, AST is 44, ALT 14, alkaline phosphatase is 77, albumin is 2.1. X-RAYS: The patient's abdominal x-ray today has shown nonspecific abdomen. The possibility of enterocolitis cannot be excluded. IMPRESSION AND PLAN: 1. Cirrhosis 2. Ascites 3. Umbilical hernia s/p repair 4. Malnutrition 5. Alcoholism 6. Anemia PLAN: Mr. Hooper is a 59-year-old male, status post hernia repair. The patient is currently receiving antibiotic Flagyl and Levaquin. He is on Lasix and Aldactone. He is also receiving multivitamin and thiamine. We will continue his PPIs daily. Patient is also on vitamin K 10 mg at 50 mL per hour daily. For his bowel regimen, he is on MiraLAX and lactulose. The patient's liver enzymes have been trending downwards. We will continue to monitor the patient and follow the plan of care per PCP. This plan was discussed with Dr. Cardona. Please call us for any further questions or concerns. Dictated by ZHANG Chavez for Jose R Cardona MD cc: Jose R Cardona MD I have seen and examined the patient myself and I agree with the above plan of care. Please call us with any further questions or concerns. PEGGY
[2019-09-11] MEDS ORDERED: NS 1,000 ML IV ONE (15:30)
--- NOTE | 2019-09-11 15:56 | PROGRESS NOTE ---
DATE: 09/11/2019 SUBJECTIVE: He is much more awake, alert. Now he is having a lot of diarrhea, but seems to be doing okay. OBJECTIVE: Vital signs: Blood pressure is 103/54, heart rate of 89, respiratory rate 17, temperature 97.6 degrees. Cardiovascular: Regular rate and rhythm. Pulmonary: Bilateral breath sounds. Clear to auscultation GI: Soft. He is a little bit more distended. Bowel sounds are positive. LABORATORY: White count 7, hemoglobin and hematocrit 8 and 25, platelets of 109,000. Sodium still low 124, which is kind of a chronic thing but still urine sodium is low, but urine osmolarity is high but that could also be just concentrating, It could be diuretics too. I am going to put him on a little bit of normal saline just to see if we can try to do that and if not improved, we may have to consider Samsca or something to that effect. DISPOSITION: Hopefully home soon. Surgery has cleared him to go home, but I am just concerned about his dropping sodium, so we will continue to follow. cc: Michael Garcia MD
[2019-09-11] MEDS: ATIVAN IV PRN (17:23)
[2019-09-12] MEDS: LEVAQUIN 750 MG/D5W 750 MG/150 ML IVPB IV SCH (02:37)
[2019-09-12] MEDS: FLAGYL 500 MG/NS 500 MG/100 ML IVPB IV SCH ×3 (04:45→15:16)
[2019-09-12 07:35] LABS: BASO# 0.01 X1000 (0.0-0.2); BASO% 0.1 % (0.0-0.8); EOS# 0.06 X1000 (0.0-0.7); EOS% 0.9 % (0.0-10.0); HEMATOCRIT 26.3 % (42.0-52.0); HEMOGLOBIN 8.7 g/dL (14.0-18.0); IMM GRAN# 0.05 X1000 (0.0-0.04); IMM GRAN% 0.7 % (0.0-0.5); LYMPH% 21.4 % (20.5-51.1); MCH 32.7 PG (27-31); MCHC 33.1 g/dL (33-37); MCV 98.9 FL (81-99); MONO# 0.91 X1000 (0.11-0.59); MPV 10.6 FL (7.4-10.4); NEUT# 4.47 X1000 (1.4-6.5); NEUT% 63.9 % (42.2-75.2); PLT 125 X1000 (130-400); RBC 2.66 XMIL (4.7-6.1); RDW 13.9 % (11.5-14.5)
[2019-09-12 07:48] LABS: AGAP 8; ALB/GLOB RATIO 0.8; ALBUMIN 2.1 g/dL (3.5-5.0); ALKALINE PHOSPHATASE 74 U/L (32-122); BUN 15 mg/dL (8-22); CALCIUM 7.6 mg/dL (8.8-10.2); CHLORIDE 96 mmol/L (98-107); COSMO 250; ESTIMATED GFR > 60; GLUCOSE 93 mg/dL (70-104); GOT 44 U/L (10-34); GPT 15 U/L (10-44); POTASSIUM 4.4 mmol/L (3.5-5.1); SODIUM 124 mmol/L (136-145); TCO2 20 mmol/L (25-35); TOTAL BILIRUBIN 1.41 mg/dL (0.20-1.00); TOTAL PROTEIN 4.8 g/dL (6.3-8.3)
[2019-09-12] MEDS: PROTONIX IV SCH ×2 (08:07→10:14)
[2019-09-12] MEDS: VITAMIN B-1 PO SCH (08:07)
[2019-09-12] MEDS: LASIX PO SCH (08:07)
[2019-09-12] MEDS: THERA M PLUS PO SCH (08:07)
[2019-09-12] MEDS: ALDACTONE PO SCH (08:07)
[2019-09-12] MEDS: MIRALAX PO SCH (08:08)
[2019-09-12] MEDS ORDERED: LASIX PO SCH (09:15)
[2019-09-12] MEDS ORDERED: ALDACTONE PO SCH (09:15)
[2019-09-12] MEDS ORDERED: LASIX PO ONE (09:57)
[2019-09-12] MEDS ORDERED: ALDACTONE PO ONE (09:59)
--- NOTE | 2019-09-12 10:59 | GASTROENTEROLOGY PROGRESS NOTE ---
DATE: 09/12/2019 OBJECTIVE: Mr. Hooper is a 59-year-old, male resting in bed. The patient mentioned feeling fairly well. He has been having positive bowel movements. He is still c/o not having an appetite. OBJECTIVE: Vital Signs: Temperature 98.9 degrees, pulse 94, respirations 15, blood pressure 105/65, oxygen saturation 99% on room air. The patient's weight is 151 pounds. BMI is 20.6 kg/m2. General: He is alert, oriented x3, and in no acute distress. HEENT: Pale conjunctivae. No icterus. PERRL. Neck: Supple. Lungs: Clear to auscultation. Cardiovascular: The patient is tachycardic. Abdomen: Abdomen is distended. Mildly tender. Midline incision has been glued, dry and intact. Extremities: No clubbing, no cyanosis. Generalized edema in the lower extremities. Neurologic: Alert and oriented x3. LABORATORY DATA: WBCs are 7.0, RBCs 2.66, hemoglobin is 8.7, hematocrit is 26.3, platelet count is 125,000. Sodium is 124, potassium is 4.4, chloride is 96, carbon dioxide is 20, anion gap is 8, BUN is 15, creatinine is 1.0, glucose is 93, calcium is 7.6, total bilirubin is 1.41, AST 44, ALT 15, alkaline phosphatase 74, albumin is 2.1. IMAGING: Abdomen x-ray yesterday showed nonspecific abdomen, possibility of enterocolitis cannot be excluded. IMPRESSION AND PLAN: 1. Decompensated alcoholic cirrhosis with ascites. 2. Ruptured umbilical hernia S/P repair. 3. Hyponatremia. 4. Iron deficiency anemia. 5. Severe protein calorie malnutrition. 6. History of alcoholism. PLAN: Mr. Hooper is a 59-year-old, male with decompensated alcoholic cirrhosis with ascites. The patient recently had a hernia repair done. The patient's abdomen is distended and has fluid. He is on fluid restriction 1500 ml/day. We have increased his Lasix and Aldactone. He is currently receiving antibiotics, Flagyl and Levaquin. Patient is on PPIs daily for his bowel regimen. He is on MiraLAX. The patient is also on multivitamin and thiamine. The patient's liver enzymes have been trending downward. We will continue to monitor the patient and follow the plan of care per PCP. This plan was discussed with Dr. Feldman. Please call us for any further questions or concerns. Dictated by ZHANG Chavez for Akin Feldman MD Physician Attestation I have seen and examined the patient. I have discussed and reviewed the note by Brenda HOLCOMB and agree with findings and plan as documented. [facility]
[2019-09-12] MEDS ORDERED: SAMSCA PO ONE (14:30)
--- NOTE | 2019-09-12 16:55 | PROGRESS NOTE ---
DATE: 09/12/2019 SUBJECTIVE: He feels okay. No major complaints. OBJECTIVE: Blood pressure 92/53, heart rate 87, respiratory 15, temperature 98.9 degrees, 99% on room air.Cardiovascular: Regular rate and rhythm. Pulmonary: Bilateral breath sounds clear to auscultation. GI: Soft, nontender, nondistended. Bowel sounds were positive. He does have a little bit increasing abdominal distention from my standpoint. LABORATORY DATA: White count 7, hemoglobin and hematocrit 8 and 26, platelets 125,000. Sodium is stable 124 but no improvement with normal saline. His urine electrolytes are all kind of inconsistent, low sodium, high osmolality. I am not sure if he really will benefit from Samsca but we will attempt to use that and see if may help get his sodium a little bit better. I think this may be just related to diuretics and cirrhosis. He is on stage II diuretics now, they have been increased today per GI. 59 yo WM with cirrhosis, decompensated and ascites s/p open ruptured hernia repair 1. Ascites. I am not sure if he will end up needing a paracentesis or like to hold off on any manipulation right now. 2. Ruptured hernia. He seems to be doing better. As far as the antibiotics, I think we could possibly switch him to p.o. He has been on them about 5 days just to cut down on the fluid so I am going to cut those down to p.o. and see if we can get by with that. He is tolerating p.o. at this point. cc: Michael Garcia MD MTDD
[2019-09-12] MEDS: FLAGYL PO SCH (18:07)
[2019-09-12 19:13] LABS: AGAP 10; BUN 15 mg/dL (8-22); CALCIUM 7.7 mg/dL (8.8-10.2); CHLORIDE 95 mmol/L (98-107); COSMO 253; ESTIMATED GFR > 60; GLUCOSE 119 mg/dL (70-104); POTASSIUM 4.3 mmol/L (3.5-5.1); SODIUM 125 mmol/L (136-145); TCO2 20 mmol/L (25-35)
[2019-09-13 07:03] LABS: EOS# 0.06 X1000 (0.0-0.7); EOS% 0.9 % (0.0-10.0); HEMATOCRIT 26.8 % (42.0-52.0); HEMOGLOBIN 9.2 g/dL (14.0-18.0); IMM GRAN# 0.07 X1000 (0.0-0.04); LYMPH# 1.23 X1000 (1.2-3.4); LYMPH% 17.4 % (20.5-51.1); MCH 33.8 PG (27-31); MCHC 34.3 g/dL (33-37); MCV 98.5 FL (81-99); MONO# 1.19 X1000 (0.11-0.59); MONO% 16.9 % (1.7-9.3); MPV 10.6 FL (7.4-10.4); NEUT% 63.8 % (42.2-75.2); PLT 129 X1000 (130-400); RBC 2.72 XMIL (4.7-6.1); WBC 7.05 X1000 (4.8-10.8)
[2019-09-13 07:21] LABS: AGAP 10; BUN 14 mg/dL (8-22); CALCIUM 7.8 mg/dL (8.8-10.2); CHLORIDE 98 mmol/L (98-107); COSMO 259; ESTIMATED GFR > 60; GLUCOSE 119 mg/dL (70-104); POTASSIUM 4.2 mmol/L (3.5-5.1); SODIUM 128 mmol/L (136-145); TCO2 20 mmol/L (25-35)
[2019-09-13] MEDS: VITAMIN B-1 PO SCH (09:54)
[2019-09-13] MEDS: FLAGYL PO SCH ×3 (09:54→17:09)
[2019-09-13] MEDS: LASIX PO SCH (09:54)
[2019-09-13] MEDS: PROTONIX IV SCH (09:54)
[2019-09-13] MEDS: THERA M PLUS PO SCH (09:54)
[2019-09-13] MEDS: ALDACTONE PO SCH (09:54)
[2019-09-13] MEDS: LEVAQUIN PO SCH (09:54)
[2019-09-13] MEDS: MIRALAX PO SCH (09:55)
[2019-09-13] MEDS ORDERED: SAMSCA PO ONE (13:54)
--- NOTE | 2019-09-13 17:11 | PROGRESS NOTE ---
DATE: 09/13/2019 SUBJECTIVE: The patient has no major complaints. He really just wants to go home which is reasonable, but his sodium is still somewhat high. OBJECTIVE: vital signs: Blood pressure 101/62, heart rate of 92, respiratory rate 17, temperature 98.5 degrees, and oxygen saturation 99% on room air. Cardiovascular: Regular rate and rhythm. Pulmonary: Bilateral breath sounds. Clear to auscultation. Gastrointestinal: Soft, nontender, nondistended. Bowel sounds are positive. Laboratories: White count 7, hemoglobin and hematocrit 9 and 26, platelets 129,000. Sodium 128 which is better. HISTORY: This is a 59-year-old male with decompensated cirrhosis and recurrent ascites. He had significant ascites that led to an umbilical hernia that then ruptured and was leaking ascitic fluid. That has been repaired, but he has reaccumulation of his ascites. PROBLEMS: 1. Decompensated cirrhosis. He is still on diuretics. He seems to be doing better. Blood pressure is stable. His electrolytes are stable. 2. Ruptured hernia. He is tolerating p.o. without difficulty although I do not think he is really eating very well. We have changed him to p.o. antibiotics. 3. Hyponatremia which is likely related to his cirrhosis mixed in with his diuretics, but he is improving and has responded to Samsca, so we will continue that. If his sodium is above 130 tomorrow, anticipate discharge. cc: Michael Garcia MD
[2019-09-14 07:31] LABS: AGAP 6; BUN 17 mg/dL (8-22); CALCIUM 7.6 mg/dL (8.8-10.2); CHLORIDE 96 mmol/L (98-107); COSMO 250; CREATININE 1.1 mg/dL (0.7-1.2); ESTIMATED GFR > 60; GLUCOSE 109 mg/dL (70-104); POTASSIUM 4.3 mmol/L (3.5-5.1); SODIUM 123 mmol/L (136-145); TCO2 21 mmol/L (25-35)
[2019-09-14] MEDS: FLAGYL PO SCH ×3 (09:17→17:30)
[2019-09-14] MEDS: LEVAQUIN PO SCH (09:17)
[2019-09-14] MEDS: VITAMIN B-1 PO SCH (09:17)
[2019-09-14] MEDS: THERA M PLUS PO SCH (09:17)
[2019-09-14] MEDS: ALDACTONE PO SCH (09:18)
[2019-09-14] MEDS: LASIX PO SCH (09:18)
[2019-09-14] MEDS: SODIUM CHLORIDE 0.9% INJ SCH (09:19)
[2019-09-14] MEDS: MIRALAX PO SCH (09:19)
[2019-09-14] MEDS: PROTONIX IV SCH (09:19)
[2019-09-14] MEDS ORDERED: NS 250 ML IV ONE (18:00)
--- NOTE | 2019-09-14 18:20 | PROGRESS NOTE ---
DATE: 09/14/2019 He still feels weak. He still seems very tired, lethargic, but no major complaints. OBJECTIVE: Vitals: Blood pressure 94/53, heart rate of 83, respiratory rate of 18, temp of 98 degrees. Cardiovascular: Regular rate and rhythm. Pulmonary: Bilateral breath sounds, clear auscultation. GI: Soft, nontender, nondistended. Bowel sounds are positive. LABORATORY DATA: No white count today. Sodium dropped to 123, though, is much worse. PROBLEM LIST: 1. Decompensated cirrhosis. He has been put on increased diuretics, but now he is having some intermittent hypotension which he was not having before. I am going to give him a little bit of a bolus and continue Samsca. He is on fluid restriction. I am going to discontinue his salt restriction at this time just until his sodium level comes up because this may be a mixed bag. 2. Status post hernia rupture and hernia repair. We will continue to monitor closely. He is empirically on antibiotics, but we may need to discontinue those unless there is evidence of spontaneous bacterial peritonitis. I would consider possibly repeating paracentesis, but I am not sure after his recent surgery when we can do that safely. We will discuss that with Dr. Cisneros tomorrow. cc: Michael Garcia MD
[2019-09-15 07:52] LABS: BASO# 0.01 X1000 (0.0-0.2); BASO% 0.1 % (0.0-0.8); EOS# 0.05 X1000 (0.0-0.7); EOS% 0.7 % (0.0-10.0); HEMATOCRIT 27.5 % (42.0-52.0); HEMOGLOBIN 9.2 g/dL (14.0-18.0); IMM GRAN# 0.05 X1000 (0.0-0.04); IMM GRAN% 0.7 % (0.0-0.5); LYMPH# 1.25 X1000 (1.2-3.4); LYMPH% 18.3 % (20.5-51.1); MCH 33.5 PG (27-31); MCHC 33.5 g/dL (33-37); MONO# 1.01 X1000 (0.11-0.59); MONO% 14.8 % (1.7-9.3); MPV 10.7 FL (7.4-10.4); NEUT# 4.47 X1000 (1.4-6.5); NEUT% 65.4 % (42.2-75.2); PLT 116 X1000 (130-400); RBC 2.75 XMIL (4.7-6.1); RDW 15.2 % (11.5-14.5); WBC 6.84 X1000 (4.8-10.8)
[2019-09-15 08:10] LABS: AGAP 9; BUN 17 mg/dL (8-22); CALCIUM 7.6 mg/dL (8.8-10.2); CHLORIDE 98 mmol/L (98-107); COSMO 261; CREATININE 0.9 mg/dL (0.7-1.2); ESTIMATED GFR > 60; GLUCOSE 111 mg/dL (70-104); POTASSIUM 4.4 mmol/L (3.5-5.1); SODIUM 129 mmol/L (136-145); TCO2 22 mmol/L (25-35)
[2019-09-15] MEDS: LASIX PO SCH (10:18)
[2019-09-15] MEDS: FLAGYL PO SCH (10:18)
[2019-09-15] MEDS: THERA M PLUS PO SCH (10:18)
[2019-09-15] MEDS: ALDACTONE PO SCH (10:18)
[2019-09-15] MEDS: VITAMIN B-1 PO SCH (10:18)
[2019-09-15] MEDS: LEVAQUIN PO SCH (10:18)
[2019-09-15] MEDS: PROTONIX IV SCH (10:19)
[2019-09-15] MEDS: SODIUM CHLORIDE 0.9% INJ SCH (10:19)
[2019-09-15] MEDS: MIRALAX PO SCH (10:19)
[2019-09-15] MEDS: ULTRAM PO PRN (10:22)
[2019-09-15 12:38] VITALS: BP 86/49
--- NOTE | 2019-09-15 12:56 | GASTROENTEROLOGY PROGRESS NOTE ---
DATE: 09/15/2019 SUBJECTIVE: Mr. Hooper is a 59-year-old male, resting in bed. The patient complained of being tired and not feeling too good. He is on a regular diet and he was able to tolerate his diet well. He has been having positive bowel movements. OBJECTIVE: Vital Signs: Temperature 98.2 degrees, pulse 100, respirations 20, blood pressure 109/67, oxygen saturation 99% on room air. The patient's weight is 151 pounds. BMI is 20.6 kg/m2. General: He is alert, oriented x3, and in no acute distress. HEENT: Pale conjunctivae. No icterus. PERRL. Neck: Supple. Lungs: Clear to auscultation. Cardiovascular: Patient is tachycardic. Abdomen: Distended, soft. Midline incision dry and intact. Skin is glued. Hypoactive bowel sounds heard in all 4 quadrants. Extremities: No clubbing, no cyanosis. Generalized edema in the lower extremities. Neurologic: Alert and oriented x3. LABORATORY DATA: WBC 6.84, RBC 2.75, hemoglobin 9.2, hematocrit 27.5, platelet count 116,000. Sodium 129, potassium 4.4, chloride 98, carbon dioxide 22, anion gap 9, BUN 17, creatinine 0.9, glucose is 111, calcium 7.6. IMPRESSION AND PLAN: 1. Ascites. 2. Cirrhosis. 3. Hyponatremia. 4. Anemia. 5. S/p umbilical hernia repair. PLAN: Mr. Hooper is a 59-year-old, male with a history of decompensated alcoholic cirrhosis with ascites. The patient's sodium levels are low. He is on a fluid restriction of 1500 mL per day and continue to low sodium diet <2g/24 hours.. The patient is also receiving Lasix and Aldactone. He is on PPIs daily. He is receiving antibiotics, Flagyl and Levaquin per PCP. For his bowel regimen, we will switch to Lactulose 30 ml twice daily and hold for more than 3 BMs in 24 hours. The patient has been having positive bowel movements. We will continue to monitor the patient and follow the plan of care per PCP. This plan was discussed with Dr. Cardona. Please call us for any further questions or concerns. Dictated by ZHANG Chavez for Jose R Cardona MD cc: Jose R Cardona MD I have seen and examined the patient myself and I agree with the above plan of care. Please call us with any questions or concerns. MTDD
--- NOTE | 2019-09-16 07:51 | DISCHARGE SUMMARY ---
ADMISSION DATE: 09/06/2019 DISCHARGE DATE: 09/15/2019 DISCHARGE DIAGNOSES: 1. Decompensated cirrhosis secondary to alcoholism. 2. Symptomatic ascites. 3. Umbilical hernia with rupture. 4. Hyponatremia. 5. Anemia of chronic disease. PROCEDURES: On 09/08/2019, he had an open repair of his recurrent umbilical hernia per Dr. Cisneros, severe protein calorie malnutrition. CONSULTATIONS: Dr. Cisneros, General Surgery; Dr. Feldman, Gastroenterology. HOSPITAL COURSE: Briefly, this is a 59-year-old male who came in with abdominal tenderness and swelling. He had fluid leaking out of abdominal incision from a cholecystectomy he had previously. He had anasarca, history of alcohol abuse (six 6-packs per week), dysphagia, periumbilical hernia oozing foul odor. CT showed ascites and leaking abdominal hernia with ascites and cirrhosis. Abdominal ultrasound was negative, but at that point, I think his hernia had ruptured. Dr. Cisneros performed an open hernia sac repair. GI was consulted. They recommended antibiotics, Aldactone, Lasix. He had some issues with abdominal swelling, but also persistent hyponatremia, which I think was a major issue for him. His diuretics were adjusted. On 09/15/2019, he was breathing comfortably. Blood pressures were still low, 90 to 109. Hemoglobin and hematocrit 9 and 27, platelets 116,000, white count 6. Sodium had increased to 129, that was after adjusting diuretics and giving him Samsca. DISCHARGE CONDITION: Stable, but he will need close followup for his labs, including electrolytes and consideration for outpatient paracentesis. DISCHARGE MEDICATIONS: He was discharged on Prilosec 20, Aldactone 100 daily, Lasix 40 daily. He had been on antibiotics, but he did not clearly have any infection. TIME SPENT: A 32-minute discharge. cc: Michael Garcia MD
== END 2019-09-15 15:59 | disposition home or self-care (01) | DRG 353 ==
LOC: ED 20:56 → SUATTDRO 09-06 03:09 → 3N 09-06 03:09
PROVIDERS: ATTEND Internal Medicine